=== PATIENT | male | born 1970 | race African-American/Black ===

== ENCOUNTER 2018-10-09 15:53 | Inpatient (IN) | payer OTHER ==
[~2018-10-09] VITALS: Ht 168.3 cm; Wt 92.7 kg
[2018-10-09] MEDS ORDERED: cloNIDine HCL 0.1 MG TAB PO ONE (16:15)
[2018-10-09 16:34] LABS: Basophils # (auto) 0.1 uL; Eosinophils # (auto) 0.1 uL; Eosinophils % (auto) 0.7 % (0.0-7.0); Hematocrit 43.1 % (41.0-53.0); Hemoglobin 15.1 g/dL (13.5-17.5); Lymphocytes # (auto) 2.9 uL; Lymphocytes % (auto) 24.4 % (10.0-50.0); Mean Corpuscular Hemoglobin 31.6 pg (28.0-32.0); Mean Corpuscular Hgb Conc. 35.1 g/dL (32.0-36.0); Monocytes # (auto) 0.7 uL; Monocytes % (auto) 5.5 % (0.0-12.0); Neutrophils # (auto) 8.1 uL; Neutrophils % (auto) 68.4 % (37.0-80.0); Nucleated Red Blood Cells % 0.1 %; Platelet Count (auto) 150 10^3/uL (140-450); Red Blood Cells 4.78 10^6/uL (4.5-5.90); Red Cell Distribution Width 13.7 % (11.8-14.3); White Blood Cell 11.9 10^3/uL (4.4-10.8)
[2018-10-09 16:37] LABS: Urine Bacteria NONE SEEN /hpf (None Seen); Urine Blood 2+ /uL (Negative); Urine Specific Gravity 1.012 (1.001-1.035); Urine WBC 1 /hpf (0 - 3)
[2018-10-09 17:01] LABS: Albumin 4.3 g/dL (3.4-5.0); BUN/Creatinine Ratio 9.7; Calcium 9.2 mg/dL (8.5-10.1); Magnesium 2.5 mg/dL (1.6-2.6); Potassium 3.6 mmol/L (3.5-5.1)
[2018-10-09 17:06] LABS: Bilirubin, Total 0.8 mg/dL (0.2-1.0); Total Protein 8.6 g/dL (6.4-8.2)
[2018-10-09] MEDS ORDERED: LABETALOL HCL 5 MG/ML ML 20ML VIAL IV ONE (18:00)
[2018-10-09] MEDS ORDERED: LORazepam 0.5 MG TAB PO ONE (18:00)
[2018-10-09] MEDS ORDERED: hydrALAZINE HCL 20 MG/ML VL IV ONE (18:00)
[2018-10-09] MEDS ORDERED: ASPirin-EC 81 mg tab PO ONE (19:30)
[2018-10-09] MEDS ORDERED: ONDANSETRON HCL 4 MG/2 ML VIAL IV ONE (20:45)
[2018-10-09] MEDS ORDERED: MORPHINE SULFATE 4 MG/ML SYR/VIAL IV ONE (20:45)
[2018-10-09] MEDS ORDERED: DILTIAZEM 125mg/125ml BAG KIT 125 ML IV ONE (21:15)
[2018-10-09] MEDS: NICARDIPINE 25MG/250ML BAG KIT 250 ML IV SCH ×2 (21:36→23:38)
[2018-10-09] MEDS ORDERED: ACETAMINOPHEN 500 MG TAB PO PRN (21:45)
[2018-10-09] MEDS ORDERED: ONDANSETRON HCL 4 MG/2 ML VIAL IV PRN (21:45)
[2018-10-09] MEDS ORDERED: MORPHINE SULF INJ 2 MG/ML SYRINGE 1ML IV PRN ×2 (21:45)
[2018-10-09] MEDS ORDERED: NITROGLYCERIN 0.4 MG SL TAB SL PRN (21:45)
[2018-10-09] MEDS: ATORVASTATIN 20 MG TAB PO SCH (22:00)
[2018-10-09 22:49] LABS: Alcohol, Urine < 3.0 mg/dL (0-5); Amphetamine Screen, Urine NEGATIVE (NEGATIVE); Barbiturate Scree,Urine NEGATIVE (NEGATIVE); Benzodiazephine Screen, Urine NEGATIVE (NEGATIVE); Cannabinoid Screen, Urine NEGATIVE (NEGATIVE); Cocaine Screen, Urine NEGATIVE (NEGATIVE); Opiate Scree,Urine NEGATIVE (NEGATIVE); Phencyclidine Screen, Urine NEGATIVE (NEGATIVE)
[2018-10-10 05:47] LABS: Basophils # (auto) 0.1 uL; Basophils % (auto) 0.7 % (0.0-2.0); Eosinophils # (auto) 0.1 uL; Eosinophils % (auto) 0.9 % (0.0-7.0); Hematocrit 38.4 % (41.0-53.0); Hemoglobin 13.7 g/dL (13.5-17.5); Mean Corpuscular Hemoglobin 31.7 pg (28.0-32.0); Mean Corpuscular Hgb Conc. 35.7 g/dL (32.0-36.0); Mean Corpuscular Volume 88.8 fL (80.0-100.0); Monocytes # (auto) 0.7 uL; Neutrophils # (auto) 8.4 uL; Neutrophils % (auto) 74.4 % (37.0-80.0); Nucleated Red Blood Cells % 0.2 %; Platelet Count (auto) 144 10^3/uL (140-450); Red Blood Cells 4.33 10^6/uL (4.5-5.90); Red Cell Distribution Width 13.4 % (11.8-14.3); White Blood Cell 11.4 10^3/uL (4.4-10.8)
[2018-10-10] MEDS ORDERED: MORPHINE SULFATE 4 MG/ML SYR/VIAL ONE (05:51)
[2018-10-10] MEDS: PANTOPRAZOLE 40 MG TAB PO SCH (05:54)
[2018-10-10 06:11] LABS: Calcium 8.8 mg/dL (8.5-10.1); Potassium 3.2 mmol/L (3.5-5.1)
[2018-10-10 06:19] LABS: BUN/Creatinine Ratio 9.3
[2018-10-10] MEDS: ASPirin-EC 81 mg tab PO SCH (09:43)
[2018-10-10] MEDS ORDERED: METOPROLOL TARTRATE 25 MG TAB PO SCH (10:00)
[2018-10-10] MEDS: NICARDIPINE 25MG/250ML BAG KIT 250 ML IV SCH ×3 (12:36→17:33)
[2018-10-10] MEDS ORDERED: POTASSIUM EFFERVESENT TAB 25 MEQ PO ONE (19:15)
[2018-10-10] MEDS: ATORVASTATIN 20 MG TAB PO SCH (22:26)
[2018-10-10] MEDS: METOPROLOL TARTRATE 50 MG TAB PO SCH (22:26)
[2018-10-11 05:51] LABS: BUN/Creatinine Ratio 9.7; Calcium 8.1 mg/dL (8.5-10.1); Potassium 3.7 mmol/L (3.5-5.1)
[2018-10-11] MEDS: PANTOPRAZOLE 40 MG TAB PO SCH (05:58)
[2018-10-11] MEDS: METOPROLOL TARTRATE 50 MG TAB PO SCH ×2 (08:32→21:45)
[2018-10-11] MEDS: cloNIDine HCL 0.1 MG TAB PO PRN (08:33)
[2018-10-11 09:30] VITALS: BP 146/79
--- NOTE | 2018-10-11 09:30 | NUR ---
Telemetry admit from ER [facility] admitted to Telemetry unit after SBAR received. Patient oriented to KASIA RIBERA, primary RN, unit, room, bed, and unit policies regarding patient care and visiting hours. Patient now on continuous telemetry monitoring, tele box # 22 and telemetry reading on arrival to unit is . Patient placed on bedside oxygen, weighed by bed scale and encouraged to call if they need something. All questions and concerns addressed, patient verbalized understanding.
[2018-10-11 09:36] VITALS: BP 146/79
[2018-10-11] MEDS: ASPirin-EC 81 mg tab PO SCH (09:52)
[2018-10-11] MEDS: NIFEdipine ER 30 MG TAB PO SCH (09:53)
[2018-10-11] MEDS ORDERED: LOSARTAN POTASSIUM 50 MG TAB PO SCH (10:00)
[2018-10-11 12:08] VITALS: BP 150/79
[2018-10-11 16:28] VITALS: BP 129/77
--- NOTE | 2018-10-11 19:50 | NUR ---
pm assessment pt sleeping chest rising and falling, arousable by name. no sob or distress. no c/o chest pain. poc discussed, pt and fiance stated understanding. safety precautions in place. will continue to monitor.
[2018-10-11] MEDS: ATORVASTATIN 20 MG TAB PO SCH (21:45)
[2018-10-11 22:00] VITALS: BP 136/72
--- NOTE | 2018-10-12 00:30 | NUR ---
rounds pt sleeping chest rising and falling, arousable by name. no sob or distress. no c/o chest pain. safety precautions in place. will continue to monitor.
[2018-10-12 05:00] VITALS: BP 160/91
[2018-10-12] MEDS: PANTOPRAZOLE 40 MG TAB PO SCH (06:24)
--- NOTE | 2018-10-12 06:24 | NUR ---
pt awake, a/ox4, states he feels some anxiety and was hard to stay asleep, states he feels its from the bp meds he's taking here. will notify md of pt symptoms. no sob or distress. safety precautions in place. will continue to monitor.
[2018-10-12 07:06] LABS: BUN/Creatinine Ratio 13.2; Calcium 8.7 mg/dL (8.5-10.1); Potassium 3.6 mmol/L (3.5-5.1)
--- NOTE | 2018-10-12 07:15 | NUR ---
Opening Shift Note Assumed care of patient, awake and alert. No S/S of distress/SOB or pain. Instructed on POC and to call for assist PRN, will continue to monitor for changes Q1hr and PRN.
[2018-10-12] MEDS: NIFEdipine ER 30 MG TAB PO SCH (10:00)
--- NOTE | 2018-10-12 10:00 | NUR ---
PROCARDIA HELD PATIENT STATED IT MAKES HIM " SOB, DIZZY AND ANXIOUS"; LOPRESSOR GIVEN ORDERED WILL CONTINUE TO MONITOR.
[2018-10-12] MEDS: METOPROLOL TARTRATE 50 MG TAB PO SCH ×2 (10:58→22:05)
[2018-10-12] MEDS: ASPirin-EC 81 mg tab PO SCH (10:58)
[2018-10-12] MEDS: LORazepam 0.5 MG TAB PO PRN ×2 (10:59→23:37)
[2018-10-12 11:48] LABS: Protein, Urine 91.2 mg/dL (0.0-11.9)
[2018-10-12 13:20] VITALS: BP 146/107
--- NOTE | 2018-10-12 15:38 | NUR ---
Nutrition Consult/assessment Notes please see attached link for complete assessment Est. Needs based on ABW (78 kg): 1478-6665 kcal (23-25 kcal/kgBW), 62-78 gms pro (0.8-1.0 gms/kgBW d/t elev RFT CKD). Will continue to monitor pertinent labs and reassess nutrient needs prn Addendum: 10/12/18 at [address] Amended: Links added.
--- NOTE | 2018-10-12 16:41 | NUR ---
DR PATRICK MEADOWS
[2018-10-12 17:35] VITALS: BP 153/86
--- NOTE | 2018-10-12 19:30 | NUR ---
Opening Shift Note Assumed care of patient, awake and alert. No S/S of distress/SOB or pain, family member at bedside. Instructed on POC and to call for assist PRN, patient verbalized understanding, call light within reach, will continue to monitor for changes Q1hr and PRN.
[2018-10-12] MEDS ORDERED: hydrALAZINE HCL 25 MG TAB PO PRN (21:15)
[2018-10-12 22:00] VITALS: BP 161/76
[2018-10-12] MEDS: ATORVASTATIN 20 MG TAB PO SCH (22:05)
[2018-10-12] MEDS: cloNIDine HCL 0.1 MG TAB PO PRN (23:38)
[2018-10-13 05:03] VITALS: BP 140/91
[2018-10-13 05:40] LABS: Calcium 8.4 mg/dL (8.5-10.1); Potassium 3.9 mmol/L (3.5-5.1)
[2018-10-13 05:42] LABS: Phosphorus 4.1 mg/dL (2.5-4.90); Uric Acid 8.6 mg/dL (3.5-7.2)
[2018-10-13 05:43] LABS: BUN/Creatinine Ratio 12.5
[2018-10-13] MEDS: PANTOPRAZOLE 40 MG TAB PO SCH (06:09)
[2018-10-13 08:38] VITALS: BP 148/107
[2018-10-13] MEDS ORDERED: MORPHINE SULF INJ 2 MG/ML SYRINGE 1ML IV PRN ×2 (08:45)
[2018-10-13] MEDS: ASPirin-EC 81 mg tab PO SCH (09:49)
[2018-10-13] MEDS: NIFEdipine ER 30 MG TAB PO SCH (09:50)
[2018-10-13] MEDS: FUROSEMIDE 40 MG TAB PO SCH (09:51)
[2018-10-13] MEDS: METOPROLOL TARTRATE 50 MG TAB PO SCH ×2 (09:51→22:00)
[2018-10-13] MEDS: ISOSORBIDE MONONITRATE 60 MG TAB PO SCH (09:52)
[2018-10-13 12:17] VITALS: BP 153/91
[2018-10-13 17:14] VITALS: BP 140/85
[2018-10-13] MEDS: hydrALAZINE HCL 10 MG TAB PO SCH ×2 (18:17→23:28)
--- NOTE | 2018-10-13 18:45 | NUR ---
CLOSING NOTES PT RESTING IN BED, WATCHING TV. NO DISTRESS NOTED. AT BEDSIDE. DENIES PAIN OR SOB.
--- NOTE | 2018-10-13 21:40 | NUR ---
Informed patient that we'll be transferring him to another room in Rm. 240A. Patient got upset, anxious and angry and tried to go home AMA. Tried to calm him down and relax, V/S taken and BP 200/102, HR 101. Medicated patient with scheduled BP meds. Informed CN Agnieszka about the situation, per Agnieszka, if patient refused its OK not to transfer him.
--- NOTE | 2018-10-13 21:50 | NUR ---
Updated patient that he's not going to transfer to another room now, patient still upset and angry. Significant other at bedside trying to calm him down, will continue to monitor
[2018-10-13 22:00] VITALS: BP 175/112
[2018-10-13] MEDS: ATORVASTATIN 20 MG TAB PO SCH (22:34)
[2018-10-13] MEDS: LORazepam 0.5 MG TAB PO PRN (23:29)
[2018-10-14 05:00] VITALS: BP 170/94
[2018-10-14] MEDS: PANTOPRAZOLE 40 MG TAB PO SCH (06:24)
[2018-10-14] MEDS: hydrALAZINE HCL 10 MG TAB PO SCH (06:24)
[2018-10-14] MEDS: cloNIDine HCL 0.1 MG TAB PO PRN (06:25)
[2018-10-14 07:04] LABS: BUN/Creatinine Ratio 11.4; Calcium 8.4 mg/dL (8.5-10.1); Potassium 3.8 mmol/L (3.5-5.1)
--- NOTE | 2018-10-14 07:20 | NUR ---
Open Shift Note Received report on patient, awake and sitting on side of bed. Patient shows no signs of distress at this time. Discussed POC with patient and girlfriend at bedside. Bed in lowest locked position, side rails up x2, and call light within reach. Will continue to monitor.
[2018-10-14 09:00] VITALS: BP 153/95
--- NOTE | 2018-10-14 09:05 | NUR ---
Dr Alejandro at Bedside Dr Alejandro at patient bedside.
[2018-10-14] MEDS: ASPirin-EC 81 mg tab PO SCH (09:28)
[2018-10-14] MEDS: ISOSORBIDE MONONITRATE 60 MG TAB PO SCH (09:30)
[2018-10-14] MEDS: FUROSEMIDE 40 MG TAB PO SCH (09:30)
[2018-10-14] MEDS: NIFEdipine ER 30 MG TAB PO SCH (09:32)
[2018-10-14] MEDS: METOPROLOL TARTRATE 50 MG TAB PO SCH (09:41)
[2018-10-14] MEDS ORDERED: ALLOPURINOL 100 MG TAB PO SCH (10:00)
[2018-10-14] MEDS ORDERED: NIF30XLT PO (11:09)
[2018-10-14] MEDS ORDERED: ISO60SRT PO (11:09)
[2018-10-14] MEDS ORDERED: ALL100T PO (11:09)
[2018-10-14] MEDS ORDERED: FURO40TA4 PO (11:09)
[2018-10-14] MEDS ORDERED: HYDR-4296 PO (11:09)
[2018-10-14] MEDS ORDERED: MET50T PO (11:09)
[2018-10-14] MEDS ORDERED: ASP81EC PO (11:09)
[2018-10-14] MEDS ORDERED: ATOR20TA50 PO (11:09)
[2018-10-14] MEDS ORDERED: cloNIDine HCL 0.1 MG TAB PO PRN (11:15)
[2018-10-14] MEDS ORDERED: hydrALAZINE HCL 25 MG TAB PO SCH ×2 (12:00→14:00)
[2018-10-14 12:55] VITALS: BP 143/84
--- NOTE | 2018-10-14 14:00 | NUR ---
Alba Kamara gave patient information on setting up primary care. Patient refusing to decide right now, states " I will once I get home". Patient given information on Dr Yung Christie and Dr Ansari.
[2018-10-14 14:41] VITALS: BP 143/84
--- NOTE | 2018-10-14 15:49 | NUR ---
Discharged Discharge instructions given as ordered. Encouraged to set up primary care provider, information given by Alba Kamara. All questions and concerns addressed. Patient verbalized understanding. Medication reconciliation form completed and copy given to patient, and prescriptions sent to [facility]. IV removed with catheter intact, pressure dressing applied. Telemetry unit returned to ICU. Patient ambulated to vehicle with all personal belongings, accompanied by significant other. No distress noted at time of departure.
[2018-10-14 16:40] VITALS: BP 141/69
== END 2018-10-14 15:49 | disposition home or self-care (01) | DRG 682 ==
LOC: ER 15:58 → OVERFLOW 22:12 → TELE-EAST 10-11 09:08
PROVIDERS: ADMIT Nurse Practitioner Family; ATTEND Internal Medicine
DX: N17.0 Acute kidney failure with tubular necrosis (principal); I50.43 Acute on chronic combined systolic (congestive) and diastolic (congestive) heart failure; I13.0 Hypertensive heart and chronic kidney disease with heart failure and stage 1 through stage 4 chronic kidney disease, or unspecified chronic kidney disease; I16.1 Hypertensive emergency; Z91.19 Patient's noncompliance with other medical treatment and regimen; N18.3 Chronic kidney disease, stage 3 (moderate); M10.9 Gout, unspecified; E78.5 Hyperlipidemia, unspecified; E87.6 Hypokalemia; F41.9 Anxiety disorder, unspecified; Z82.49 Family history of ischemic heart disease and other diseases of the circulatory system; Z88.8 Allergy status to other drugs, medicaments and biological substances; Z79.899 Other long term (current) drug therapy
CPT/HCPCS: 36415; 70450; 71046; 76775; 80048; 80053; 80061; 80307; 81001; 82088; 82570; 83735; 83835; 83880; 84100; 84156; 84244; 84443; 84484; 84550; 85025; 93005; 93306; 96374; 96375; G0378; J2405

== ENCOUNTER → 2019-01-10 | Outpatient (CLI) | payer OTHER ==
[~2019-01-10] MED LIST: ALL100T PO; ASP81EC PO; ATOR20TA50 PO; FURO40TA4 PO; HYDR-4296 PO; ISO60SRT PO; MET50T PO; NIF30XLT PO
[2019-01-10 08:07] LABS: Urine Bacteria NONE SEEN /hpf (None Seen); Urine Blood Negative /uL (Negative); Urine Specific Gravity 1.004 (1.001-1.035); Urine WBC 1 /hpf (0 - 3)
[2019-01-10 08:38] LABS: Albumin 3.9 g/dL (3.4-5.0); BUN/Creatinine Ratio 10.8; Calcium 9.3 mg/dL (8.5-10.1); Potassium 3.7 mmol/L (3.5-5.1); Uric Acid 8.1 mg/dL (3.5-7.2)
[2019-01-10 08:42] LABS: Bilirubin, Total 0.6 mg/dL (0.2-1.0); Total Protein 7.4 g/dL (6.4-8.2)
[2019-01-10 10:42] LABS: Prostate Specific Antigen 0.83 ng/mL (0.0-4.0)
== END | disposition home or self-care (01) ==
LOC: LAB 07:32
PROVIDERS: ATTEND Family Medicine
DX: Z00.00 Encounter for general adult medical examination without abnormal findings (principal); M10.9 Gout, unspecified; I12.9 Hypertensive chronic kidney disease with stage 1 through stage 4 chronic kidney disease, or unspecified chronic kidney disease; N18.3 Chronic kidney disease, stage 3 (moderate); E78.5 Hyperlipidemia, unspecified; E87.6 Hypokalemia; Z82.49 Family history of ischemic heart disease and other diseases of the circulatory system
CPT/HCPCS: 36415; 80053; 80061; 81001; 82607; 84153; 84550

== ENCOUNTER 2022-01-19 08:12 | Emergency (ER) | payer OTHER ==
[~2022-01-19] VITALS: Ht 167.6 cm; Wt 98.0 kg
[~2022-01-19 08:12] MED LIST changes: -ASP81EC PO; +ASPI-394 PO; -NIF30XLT PO; +NIFE1TAB36 PO
[2022-01-19] MEDS ORDERED: LORazepam 2MG/ML-1ML VIAL IV ONE (08:45)
[2022-01-19] MEDS ORDERED: LABETALOL HCL 5 MG/ML 4ML SYRINGE IV ONE (08:45)
[2022-01-19 10:16] LABS: Basophils # (auto) 0 10 ^3/uL (0-0.2); Basophils % (auto) 0.3 % (0.0-2.0); Eosinophils # (auto) 0 10 ^3/uL (0-0.8); Eosinophils % (auto) 0.1 % (0.0-7.0); Hematocrit 48.1 % (41.0-53.0); Hemoglobin 16.7 g/dL (13.5-17.5); Lymphocytes # (auto) 2.1 10 ^3/uL (0.4-5.4); Lymphocytes % (auto) 14.5 % (10.0-50.0); Mean Corpuscular Hemoglobin 30.2 pg (28.0-32.0); Mean Corpuscular Hgb Conc. 34.7 g/dL (32.0-36.0); Mean Corpuscular Volume 87.1 fL (80.0-100.0); Monocytes # (auto) 1.1 10 ^3/uL (0-1.3); Monocytes % (auto) 7.2 % (0.0-12.0); Neutrophils # (auto) 11.5 10 ^3/uL (1.6-8.6); Neutrophils % (auto) 77.9 % (37.0-80.0); Nucleated Red Blood Cells % 1.1 %; Red Blood Cells 5.52 10^6/uL (4.5-5.90); Red Cell Distribution Width 13.4 % (11.8-14.3); White Blood Cell 14.8 10^3/uL (4.4-10.8)
[2022-01-19 10:34] VITALS: BP 214/124
[2022-01-19 10:55] LABS: Calcium 9.7 mg/dL (8.5-10.1); Potassium 4.1 mmol/L (3.5-5.1)
[2022-01-19 11:00] LABS: BUN/Creatinine Ratio 9.5; Bilirubin, Total 0.9 mg/dL (0.2-1.0); Total Protein 9.4 g/dL (6.4-8.2)
== END 2022-01-19 10:45 | disposition short-term general hospital (02) ==
LOC: ER 08:12
DX: S06.300A Unspecified focal traumatic brain injury without loss of consciousness, initial encounter (principal); I12.9 Hypertensive chronic kidney disease with stage 1 through stage 4 chronic kidney disease, or unspecified chronic kidney disease; N18.30 Chronic kidney disease, stage 3 unspecified; R51.9 Headache, unspecified; I16.1 Hypertensive emergency; X58.XXXA Exposure to other specified factors, initial encounter; Y93.89 Activity, other specified; Y92.89 Other specified places as the place of occurrence of the external cause; Y99.8 Other external cause status
CPT/HCPCS: 36415; 70450; 80053; 84484; 85025; 93005; 96365; 96375; 99285; J2060; J3490